=== PATIENT | male | born 1995 | race Caucasian/White ===

== ENCOUNTER 2018-03-28 10:14 | Emergency (ER) | payer OTHER ==
[~2018-03-28] VITALS: Ht 170.2 cm; Wt 57.6 kg
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
[2018-03-28 10:20] VITALS: BP_SYST 135
--- NOTE | 2018-03-28 10:20 | NUR ---
Pt to bed 2
--- NOTE | 2018-03-28 10:20 | NUR ---
Dr. Arita at bedside for evaluation
[2018-03-28] MEDS ORDERED: LIDOCAINE 1% 10 MG/ML, 20 ML MDV INJ ONE (10:30)
--- NOTE | 2018-03-28 10:30 | NUR ---
at bedside for wound repair.
[2018-03-28] MEDS ORDERED: BACITRACIN 1 GM OINT TP ONE (11:11)
--- NOTE | 2018-03-28 11:17 | NUR ---
Patient transported to radiology via WC, accompanied by rad staff.
[2018-03-28 13:37] VITALS: BP_SYST 128
--- NOTE | 2018-03-28 13:37 | NUR ---
Patient given written and verbal discharge instructions and verbalizes understanding. ER MD discussed with patient the results and treatment provided. Patient in stable condition. ID arm band removed. Rx of Tylenol,Motrin,Bacitracin given. Patient educated on pain management and to follow up with PMD. Pain Scale 3/10 tolerable for pt. Opportunity for questions provided and answered. Medication side effect fact sheet provided.
== END 2018-03-28 13:37 | disposition home or self-care (01) ==
LOC: SED 10:14
DX: S01.01XA Laceration without foreign body of scalp, initial encounter (principal); S81.011A Laceration without foreign body, right knee, initial encounter; S80.212A Abrasion, left knee, initial encounter; S80.211A Abrasion, right knee, initial encounter; S60.311A Abrasion of right thumb, initial encounter; S40.211A Abrasion of right shoulder, initial encounter; R03.0 Elevated blood-pressure reading, without diagnosis of hypertension; V18.0XXA Pedal cycle driver injured in noncollision transport accident in nontraffic accident, initial encounter; Y93.89 Activity, other specified; Y92.410 Unspecified street and highway as the place of occurrence of the external cause; Y99.8 Other external cause status
CPT/HCPCS: 70450-TC; 99284